=== PATIENT | female | born 1945 | race Caucasian/White ===

== ENCOUNTER 2017-03-09 23:35 | Inpatient (IN) | payer OTHER ==
--- NOTE | ~2017-03-09 | CO ---
Unit #: [id number] #: [id number] Patient: ALEXUS BOYKIN [id number] [facility] [address]. [place], [place] [address] [id number] MR#: [id number] NAME: ALEXUS BOYKIN ROOM: 309 Age: 72 Sex: F Admission Date: 03/10/2017 : 1945 Attending Physician: Jaime Carrillo M.D. Primary Care Physician: Chiquis Be M.D. CONSULTATION REPORT PRIMARY CARE PHYSICIAN Chiquis Be M.D. REASON FOR CONSULTATION Recurrent syncope. HISTORY OF PRESENT ILLNESS Ms. Boykin is a 72-year-old female with COPD and hypertension. Her hypertension has been difficult to control for many years. She has had angioedema from lisinopril in the past and she has been hospitalized. She was at [facility] in 12/2015 with the angioedema concerns and her CARLINE inhibitor was discontinued. At that time, it was also noted that she possibly had a transient ischemic attack. She was discharged with the metoprolol, Imdur, and Norvasc. Since then, she has had difficulty controlling her blood pressure with medicine and her blood pressure medicines have been adjusted. Her most current list includes Lopressor at 50 mg daily as well as hydrochlorothiazide at 25 mg daily, and hydralazine 75 mg t.i.d. In the last 4 months, she has had approximately 4 to 5 "spells," where she has lost consciousness. She states that this always occurs when she had been bending over and then comes to an upright position or when she has been sitting and comes to a standing position. She normally feels as though she is losing function of her body; however, she complains of no dizziness with this or lightheadedness. Yesterday, she had an episode while bending over to feed her cat. This was witnessed by her son and she was brought to [facility]. She states that she sought no medical treatment after her previous episodes of syncope. She states that these episodes only last for few seconds to a minute at a time and then she is feeling back to her baseline. This information is received from record review as well as from the patient interview. Her prior cardiac testing history, she had a left heart catheterization on 08/09/2004 which showed normal coronaries. She had a 2D echocardiogram on 03/22/2016 which showed EF of 60% with mild asymmetric septal hypertrophy. PAST MEDICAL HISTORY Includes; 1. Hypertension. 2. Hypothyroidism. 3. COPD. 4. Hormone replacement therapy. 5. Depression. 6. Degenerative joint disease. 7. Cholecystectomy. Unit #: [id number] #: [id number] Patient: ALEXUS BOYKIN 8. Hysterectomy secondary to cervical cancer. 9. Bilateral vocal cord polyp removal. 10. Exploratory lap x2. 11. Obstructive sleep apnea, diagnosed 2 years ago for which she is intolerant to her mask. 12. Pulmonary hypertension. 13. Possible TIA in 2016. 14. Hyperlipidemia. 15. Acute colitis in 2007. 16. Gastroesophageal reflux disease. 17. Environmental allergies. ALLERGIES Include sulfa and codeine and lisinopril which was thought to cause angioedema. HOME MEDICATIONS They include the following; Symbicort 2 puffs b.i.d., Lopressor 50 mg daily, potassium 20 mEq daily, estradiol 0.5 mg daily, Synthroid 88 mcg daily, Periactin 4 mg daily, Effexor 225 mg daily, omeprazole 20 mg daily, hydrochlorothiazide 25 mg daily, hydralazine 75 mg t.i.d., Flonase 2 puffs inhalation daily, Katherine 180 mg daily. SOCIAL HISTORY She quit smoking in 07/2015, but was 60 plus 1/2 to 1 pack a day smoker. She denies ever using alcohol or drugs. FAMILY HISTORY Mother with pancreatic cancer. Father's history is unknown. Brother with throat cancer. REVIEW OF SYSTEMS GENERAL: She states that she had pneumonia 1 month ago, but denies any recent fevers, chills, flu-like symptoms, or unintentional weight loss. SKIN: Denies any rashes or ulcerations, but does have various scabbed wounds on her arms and "thin skin." HEAD: Headaches, denies. EYES: Denies any sudden change in vision. EARS: Denies any sudden change in hearing. BLEEDING: Denies epistaxis, hemoptysis, hematuria, or melena. THROAT: Denies any problems with swallowing. LUNGS: Denies any wheeze, cough, or increased shortness of breath. CHEST: Denies any pain, palpitations, tachycardia, PND, or orthopnea. GI: Denies any nausea, vomiting, diarrhea, constipation, or change in stools, but states that she has frequent flatus. : Denies any burning or urgency. EXTREMITIES: Denies any swelling or increased pain with walking. SPINE: Denies any chronic back pain or scoliosis. NEURO: She has numbness and tingling of her right arm which she attributes to some carpal tunnel symptoms. No seizures or stroke-like symptoms, dizziness or unsteadiness; however, she did have the fall yesterday and did hit her head after feeding the cat and having her "spell." PHYSICAL EXAMINATION VITAL SIGNS: Blood pressure is 161/91, heart rate 57, respirations 14, temperature is 98, and 190 pounds. GENERAL: Well-developed, well-nourished, white female, in no acute Unit #: [id number] #: [id number] Patient: ALEXUS BOYKIN resting in the bed. SKIN: No obvious rashes or ulcerations noted. She does have various scabs on her bilateral upper extremities in various stages of healing. HEENT: Eyes, PERRLA. No xanthelasma. Oral, good dentition. Moist mucous membranes. No pallor. NECK: No carotid bruits auscultated bilaterally. SPINE: No scoliosis. CHEST: Clear to auscultation bilaterally. No wheezes, rales, or rhonchi. CARDIAC: S1 and S2. No murmur, rub, gallop, or lift. ABDOMEN: Soft and nontender. Positive bowel sounds. EXTREMITIES: Bilateral pedal pulses +2. No edema. NEUROLOGIC: Alert and oriented x3. Speech is clear. No obvious neuro deficits. DIAGNOSTIC STUDIES Her current labs/tests include: IMAGING STUDIES: CT of the cervical spine is normal. CT of the head, normal. Shoulder x-ray shows degenerative changes with no acute injury. Chest x-ray shows no active disease. LABORATORY RESULTS: Sodium 139, potassium 2.7, glucose 97, BUN 24, creatinine 1.3. Magnesium 1.8. Troponin less than 0.03 and less than 0.05 x2 at point of care. Urinalysis is essentially normal for infection with no culture indicated. BNP 140. PT 10.2, INR 1.0. Hemoglobin 12.8, hematocrit 39, platelets 153, and white blood cell count 7.3. IMPRESSION 1. Syncope, recurrent. 2. Hypertension. 3. Prolonged QT. 4. Hypothyroidism. 5. Hypokalemia, replace. 6. Untreated obstructive sleep apnea. 7. Chronic obstructive pulmonary disease. 8. Pulmonary hypertension. PLAN Dr. Foote has evaluated Ms. Boykin at the bedside and feels as though switching her hypertensive medications would be beneficial. At this point, we will add Norvasc 10 mg daily as well as well as chlorthalidone 25 mg daily, and change her hydralazine to 100 mg b.i.d. We will discontinue her hydrochlorothiazide and her beta-blaze due to her symptoms and a prolonged QTc. We will also discontinue the Effexor that also causes syncope, hypotension, and hypokalemia. She does have some bradycardia as well with rates in the 50s. We would like to see her chronotropic competence with stress testing. She also with the history of smoking and hypertension causes intermediate risk for coronary artery disease and ischemic evaluation is warranted. We will complete a Cardiolite stress test in the morning and also evaluate a TSH, hemoglobin A1c, and a lipid panel today and make further recommendations. We will also be evaluating the 2D echocardiogram that has already been ordered as well as the Holter monitor. She will need to be discharged home with an event monitor as well. Thank you for this consultation. We will be happy to follow this patient with you. Unit #: [id number] #: [id number] Patient: ALEXUS BOYKIN Dictated by... Dai BranPEmileREmileNEmile for MILI/tab TD: 03/11/2017 02:47 JOB #: [id number] CONSULTATION REPORT Page 1 of 1 X X CONSULTATION REPORT
--- NOTE | ~2017-03-09 | EKG ---
PATIENT: ALEXUS BOYKIN UNIT #: [id number] Ventricular Rate: 53 BPM Atrial Rate: 53 BPM P-R Interval: 168 ms QRS Duration: 98 ms Q-T Interval: 560 ms QTC Calculation(Bezet): 525 ms P [place]: 51 degrees Calculated R [place]: 13 degrees Calculated T [place]: 60 degrees Diagnosis Line: Sinus bradycardia Diagnosis Line: Cannot rule out , old Inferior infarct Diagnosis Line: Prolonged QT Diagnosis Line: Abnormal ECG Diagnosis Line: No previous ECGs available Diagnosis Line: Confirmed by BIJAL FORD MD ([id number]) on 03/11/2017 Diagnosis Line: 5:28:12 AM INTERPRETING MD: LILIANA LEE
--- NOTE | ~2017-03-09 | HP ---
Unit #: [id number] #: [id number] Patient: ALEXUS BOYKIN [id number] [address] [place], [place] [address] [id number] I MR#: [id number] NAME: ALEXUS BOYKIN. ROOM: 52796 Age: 72 Sex: F Admission Date: 03/10/2017 : 1945 Attending Physician: Priscilla Manuel M.D. Primary Care Physician: Chiquis Be M.D. HISTORY AND PHYSICAL CHIEF COMPLAINT Recurrent syncope, hypokalemia. HISTORY This pleasant 72-year-old female with hypertension, hypothyroidism, COPD, is admitted for recurrent syncope. The patient states that about three months ago or so she began to experience lightheadedness. These episodes would occur if patient stood up and was standing, or had straightened up after bending over. Patient has passed out four or five times. But also has had multiple episodes of near syncope improved after being seated. She denies other symptoms of the above, specifically no palpitations, chest pains, etc. She was seen by her primary care physician and an EKG reportedly may have been abnormal, she was referred to Dr. Celis who she has not yet followed up with. Head CT carotid ultrasound reportedly negative. Patient was noted to have hypokalemia, which was supplemented as an outpatient. Last night, after standing up from a bent over position, she became quite lightheaded and had a syncopal episode. Was unconscious for less than a minute. Hit her right side of her head and right shoulder. Son witnessed this, and patient did urinate on herself. However, these episodes are not associated with prolonged confusion. Patient states that she was confused, perhaps a minute or two upon awakening. She presented to this emergency department where she looks to be mildly dehydrated by labs, and her potassium is 2.5. Orthostatics were performed, and patient is orthostatic by blood pressure, not by pulse. PAST MEDICAL HISTORY 1. COPD. 2. GERD. 3. HRT. 4. Hypothyroidism. 5. Depression. 6. Essential hypertension. 7. DJD. 8. Cholecystectomy. 9. Hysterectomy for cervical cancer. 10. Bilateral vocal cord polyps, which were removed. 11. Exploratory lap x2. ALLERGIES Sulfa, codeine, and lisinopril. HOME MEDICATIONS Unit #: [id number] #: [id number] Patient: ALEXUS BOYKIN Symbicort 80/4.5 two puffs b.i.d.; metoprolol 50 mg b.i.d.; Xopenex as needed; gas relief as needed; potassium 20 mEq daily; estradiol 1 mg 1/2 tablet daily; Synthroid 0.088 mg daily; cyproheptadine 4 mg daily; Zanaflex ER 225 mg daily; omeprazole 20 mg as needed; Lasix 40 mg daily; HCTZ 25 mg daily; hydralazine 50 mg 1.5 tablets t.i.d.; Flonase nasal spray; Katherine; glucosamine; and vitamins. FAMILY HISTORY Pancreatic, colon and throat cancer. SOCIAL HISTORY The patient lives with her son. She does not drink alcohol. She smoked about a pack per day of tobacco, until 07/2015 when she stopped smoking. REVIEW OF SYSTEMS Notable for postural lightheadedness and syncope, COPD, GERD, hypothyroidism, depression, hypertension, DJD, above mentioned surgeries, history of pedal edema. All other systems were reviewed and are otherwise negative. PHYSICAL EXAMINATION GENERAL: Pleasant, moderately obese, 72-year-old female, currently in no acute distress. VITAL SIGNS: Temperature 97.9, pulse 63, respirations 24, blood pressure 144/97, O2 saturation 100% on room air. HEENT: Eyes - PERRLA, extraocular muscles are intact. Pharynx is benign. NECK: Supple without adenopathy or thyromegaly. No carotid bruits. CHEST: Rhonchi. CARDIAC: Normal S1 and S2 without definite murmur. ABDOMEN: Bowel sounds are present. No hepatosplenomegaly, tenderness or masses. Well healed scar was noted. EXTREMITIES: Without clubbing, cyanosis or edema. Pedal pulses are present. NEUROLOGIC: Patient is awake, alert and oriented. Cranial nerves are intact. She has equal strength throughout. Normal rapid alternating movements. Normal pfzjuh-ju-gfmv, negative pronator drift. DIAGNOSTIC STUDIES LABORATORY STUDIES: Hematocrit is 39, normal white count, platelet count and coags. SMA 12 - BUN 25, potassium 2.5, chloride 99, CO2 32. BNP is 140. Cardiac markers are negative. Urinalysis is negative. IMAGING STUDIES: Head CT - no acute disease. CT of the C-spine negative. X-ray of the right shoulder - DJD. Chest x-ray - no acute disease. CARDIOLOGY STUDIES: EKG shows a sinus bradycardia rate 53, prolonged QT interval. ASSESSMENT 1. Recurrent episodes of syncope and near syncope, which sound to be postural, i.e. orthostatic hypotension. Patient's blood pressure drops 13 points with standing, although her heart rate is unchanged. She is, however, on beta-blockers. She has borderline bradycardia on Unit #: [id number] #: [id number] Patient: ALEXUS BOYKIN current beta-blockers. 2. Hypokalemia. 3. COPD. 4. Essential hypertension. 5. Hypothyroidism. 6. Depression. 7. HRT therapy. 8. GERD. PLANS 1. Gently IV fluids. 2. Will discontinue Lasix as patient already takes HCTZ. 3. Decrease Lopressor to 25 mg b.i.d. 4. Replace potassium and check magnesium. 5. DVT prophylaxis. 6. Holter monitor and echo. Patient also planned to see Dr. Celis and I will ask him to see while she is hospitalized. Dictated by Priscilla Manuel M.D. AML/ts TD: 03/10/2017 06:19 JOB #: [id number] HISTORY AND PHYSICAL Page 1 of 1 X Priscilla Manuel MD HISTORY AND PHYSICAL
--- NOTE | ~2017-03-09 | CT52 ---
[facility] A Service of [facility] & [facility] RADIOLOGY TEXT RESULTS PATIENT: ALEXUS BOYKIN LOCATION: [facility] 309- : 47 UNIT #: [id number] AGE: [address]: Jaime Carrillo MD SEX: F ORDER DR: [id number] [place] [id number] [facility]. [place], [place] [address] [id number] I MR#: [id number] Acc #: [id number] NAME: ALEXUS BOYKIN. : 1945 SEX: F STUDY DATE/TIME: 03/10/2017 1:09 UNIT: CEDOF ROOM: 69710 STUDY DESCRIPTION: CT Cervical Spine Wo Cont Attending Physician: Jaime Carrillo M.D. Ordering Physician: Ba Santizo M.D. Primary Care Physician: Chiquis Be M.D. MEDICAL IMAGING REPORT This report is preliminary unless electronic signature is present EXAM CT scan of the cervical spine without contrast HISTORY Syncope, weakness. Had trauma to right side head with neck pain. TECHNIQUE Axial 2.0 mm images were obtained through the cervical spine and sagittal and coronal reconstructions were generated. This CT exam was performed with one or more of the following radiation dose reduction techniques: automatic exposure control, adjustment of mA and/or kV according to patient size, and iterative reconstruction. FINDINGS The vertebral bodies and disc spaces have normal alignment and there is no fracture or soft tissue swelling. IMPRESSION Normal CT scan of the cervical spine without contrast. Dictated by... José Lopez M.D. THIS IS AN ELECTRONICALLY VERIFIED REPORT José Lopez M.D. at 03/10/2017 1:23 PM TRINA/adriane TD: 03/10/2017 09:11 JOB #: [id number] MEDICAL IMAGING REPORT [facility] A Service of [facility] & [facility] RADIOLOGY TEXT RESULTS PATIENT: ALEXUS BOYKIN LOCATION: [facility] 309- : 47 UNIT #: [id number] AGE: [address]: Jaime Carrillo MD SEX: F ORDER DR: Page 1 of 1 COPY
--- NOTE | ~2017-03-09 | CR72 ---
[facility] A Service of [facility] & [facility] RADIOLOGY TEXT RESULTS PATIENT: ALEXUS BOYKIN LOCATION: [facility] 309-01 : 47 UNIT #: [id number] AGE: [address]: Jaime Carrillo MD SEX: F ORDER DR: [id number] [facility] [address] [place], [place] [address] [id number] I MR#: [id number] Acc #: [id number] NAME: ALEXUS BOYKIN. : 1945 SEX: F STUDY DATE/TIME: 03/10/2017 1:00 UNIT: [facility] ROOM: 34538 STUDY DESCRIPTION: CR Chest Single View Portable Attending Physician: Jaime Carrillo M.D. Ordering Physician: Ba Santizo M.D. Primary Care Physician: Chiquis Be M.D. MEDICAL IMAGING REPORT This report is preliminary unless electronic signature is present EXAM Portable chest. HISTORY Right side chest pain beginning tonight after fall. FINDINGS A portable view of the chest was obtained. Compared to 02/07/2017. Heart size and vascularity are normal. Lungs are clear. The bones are normal. IMPRESSION No active disease. Dictated by... José Lopez M.D. THIS IS AN ELECTRONICALLY VERIFIED REPORT José Lopez M.D. at 03/10/2017 1:23 PM TRINA/trace TD: 03/10/2017 09:03 JOB #: [id number] MEDICAL IMAGING REPORT Page 1 of 1 COPY
--- NOTE | ~2017-03-09 | CO ---
Unit #: [id number] #: [id number] Patient: ALEXUS BOYKIN [id number] [address] [place], [place] [address] [id number] I MR#: [id number] NAME: ALEXUS BOYKIN ROOM: 309 Age: 72 Sex: F Admission Date: 03/10/2017 : 1945 Attending Physician: Jaime Carrillo M.D. Primary Care Physician: Chiquis Be M.D. Consultation Date: 03/12/2017 CONSULTATION REPORT REASON FOR CONSULTATION Evaluation of sleep apnea prior to discharge. HISTORY OF PRESENT ILLNESS A 72-year-old female who was diagnosed in our office with sleep apnea three or four years ago and those details are unavailable. She was intolerant to CPAP primarily because of nasal congestion. She has significant nasal issues and has been evaluated by Dr. Gallego in the past and was told she has septal deviation as well as bilateral vocal cord polyps. She does snore. She has daytime sleepiness. She has a history of COPD. She feels that it is doing fairly well and she is controlled on Symbicort b.i.d. and albuterol p.r.n. at home. She was admitted to the hospital at this time with difficult to control hypertension and recurrent syncope which is felt to be orthostatic. PAST MEDICAL HISTORY Past medical history is remarkable for sleep apnea, COPD, gastroesophageal reflux, hypothyroidism, depression, hypertension, vocal cord polyps which have been removed. MEDICATIONS AT HOME Symbicort two puffs b.i.d., p.r.n. albuterol. According to the med rec sheet she is on Lopressor, potassium, Estrace, Synthroid, Periactin, Effexor, Prilosec, hydrochlorothiazide, Apresoline, Flonase, Katherine but many of these medications have been changed. ALLERGIES Sulfa, lisinopril with angioedema, codeine, hydrochlorothiazide. SOCIAL HISTORY Quit smoking in 2014 but was a fairly heavy smoker in the past. She denies alcohol use. FAMILY HISTORY No definite familial lung disease. REVIEW OF SYSTEMS She feels fairly well. No chest pain or palpitations. She denies any wheezing although she has minimal wheezing on exam. No change in sputum production. No fever, chills or weight loss. No difficulty swallowing. No abdominal pain, melena, hematuria or dysuria, focal weakness, paresthesias, leg pain or swelling. She is actually asking to go home. Unit #: [id number] #: [id number] Patient: ALEXUS BOYKIN Further review of systems negative. PHYSICAL EXAMINATION VITAL SIGNS: Examination reveals the patient is afebrile, pulse 98, respiratory rate is 20, blood pressure is 123/90. She is 5 foot 6, 197 pounds, BMI is 30. HEENT: Pupils equal, round and reactive to light. Sclerae anicteric. Head atraumatic. NECK: Supple. No supraclavicular or cervical adenopathy appreciated. Mallampati class IV oropharynx with dentures in place. CHEST: Some faint expiratory wheeze best heard posteriorly. No stridor or consolidation. CARDIAC: Examination reveals a regular rate and rhythm. She has a loud systolic murmur across her precordium. ABDOMEN: Abdomen is obsess, soft, nontender. No hepatomegaly or rebound. EXTREMITIES: Reveal no cyanosis, clubbing or edema. No calf tenderness. SKIN: Skin is warm and dry, without rash or diaphoresis. NEUROLOGIC: Neurologically grossly intact. No focal muscle or sensory deficits. DIAGNOSTIC STUDIES LABORATORY EXAMINATION: BUN is 18, creatinine is 1.0, TSH is elevated at 25.27, INR normal, cardiac enzymes were normal, white blood cell count 12, hemoglobin 12, platelet count 151. CARDIOVASCULAR: Echocardiogram: LV function was normal. Estimated RVSP is 37. IMPRESSION 1. Obstructive sleep apnea diagnosed in the past, intolerant to CPAP. 2. Chronic obstructive pulmonary disease with mild bronchospasm but fairly asymptomatic. 3. Pulmonary hypertension. 4. Systemic hypertension with elevated blood pressure undergoing readjustment of medications. 5. Hypothyroidism with elevated TSH. 6. Medical problems listed above. PLAN Once again I have discussed with the patient pathophysiology of sleep apnea including the adverse health effects if not treated and increased risk of motor vehicle accidents. We have discussed the diagnostic and therapeutic options and she is agreeable to retrying it. Consider outpatient PFTs as well. Continue her Symbicort b.i.d. and p.r.n. albuterol at home. Hopefully her sleep study can be performed in a split fashion as we know she has sleep apnea and needs CPAP. Thank you very much for allowing me to participate in the care of Ms. Boykin. Dictated by... Sang Brooks M.D. [facility]/cf Unit #: [id number] #: [id number] Patient: ALEXUS BOYKIN TD: 03/12/2017 22:42 JOB #: [id number] CC: John Mcintosh M.D. CONSULTATION REPORT Page 1 of 1 X Sang Brooks MD X CONSULTATION REPORT
--- NOTE | ~2017-03-09 | HM ---
Unit #: [id number] #: [id number] Patient: ALEXUS BOYKIN [id number] [address] [address] [id number] MR#: [id number] NAME: ALEXUS BOYKIN. : 1945 SEX: F STUDY DATE/TIME: 03/10/2017 UNIT: C3A PCU ROOM: 309 STUDY DESCRIPTION: Holter monitor Attending Physician: Jaime Carirllo M.D. Primary Care Physician: Chiquis Be M.D. CARDIOLOGY REPORT EXAM [id number] Holter DATE APPLIED 03/10/2017 DATE SCANNED 03/12/2017 ORDERED BY Darlyn READ BY Dr. Michelle Wilkinson INDICATION Syncope FINDINGS Underlying rhythm is normal sinus rhythm with an average heart rate of 73 beats per minute, minimum heart rate of 45 beats per minute and a maximum heart rate of 137 beats per minute. The minimum heart rate of 45 beats per minute is noted at 9:45 a.m. The maximum heart rate of 137 beats per minute is noted at 6:00 a.m. Patient had a 1.24 second pause noted at 1:08 p.m. Patient has 443 single multifocal premature ventricular complexes, four ventricular couplets and 126 ventricular bigeminy noted. Patient had 976 single premature atrial complexes and 13 atrial couplets noted. Patient had a three-beat run of paroxysmal supraventricular tachycardia at a heart rate of about 150 beats per minute. Patient did not record any symptoms. CONCLUSION 1. Underlying rhythm is normal sinus rhythm with an average heart rate of 73 beats per minute, minimum heart rate of 45 beats per minute and a maximum heart rate of 137 beats per minute. 2. No sustained atrial or ventricular arrhythmias noted. 3. No significant pauses noted. 4. Frequent single multifocal premature ventricular complexes noted. 5. Frequent single premature atrial complexes noted. 6. Patient had a three-beat run of paroxysmal supraventricular tachycardia at a heart rate of 150 beats per minute. 7. Patient did not record any symptoms. Unit #: [id number] #: [id number] Patient: ALEXUS BOYKIN Dictated by... Dot Cedeno TD: 03/17/2017 17:52 JOB #: [id number] CC: Chiquis Be M.D. CARDIOLOGY REPORT Page 1 of 1 X Michelle Wilkinson MD <ELECTRONICALLY SIGNED> 06/14/17 1429 HOLTER MONITOR REPORT
--- NOTE | ~2017-03-09 | CR230 ---
[facility] A Service of [facility] & [facility] RADIOLOGY TEXT RESULTS PATIENT: ALEXUS BOYKIN LOCATION: [facility] 309-01 : [birth year] UNIT #: [id number] AGE: [address]: Jaime Carrillo MD SEX: F ORDER DR: [id number] [facility] [address]. [place], [place] [address] [id number] I MR#: [id number] #: [id number] NAME: ALEXUS BOYKIN. : 1945 SEX: F STUDY DATE/TIME: 03/10/2017 1:02 UNIT: [facility] ROOM: 32919 STUDY DESCRIPTION: CR Shoulder Min 2 View Rt Attending Physician: Jaime Carrillo M.D. Ordering Physician: Ba Santizo M.D. Primary Care Physician: Chiquis Be M.D. MEDICAL IMAGING REPORT This report is preliminary unless electronic signature is present EXAM Right shoulder HISTORY Right shoulder pain after a fall tonight. COMPARISON 05/04/2015 FINDINGS 3 views of the right shoulder were obtained. There is some degenerative spurring from the humeral head. There is no fracture or dislocation. IMPRESSION Degenerative changes. No evidence of acute injury. Dictated by... José Lopez M.D. THIS IS AN ELECTRONICALLY VERIFIED REPORT José Lopez M.D. at 03/10/2017 1:23 PM TRINA/adriane TD: 03/10/2017 09:03 JOB #: [id number] MEDICAL IMAGING REPORT Page 1 of 1 COPY
--- NOTE | ~2017-03-09 | EKG ---
PATIENT: ALEXUS BOYKIN UNIT #: [id number] Ventricular Rate: 94 BPM Atrial Rate: 94 BPM P-R Interval: 168 ms QRS Duration: 88 ms Q-T Interval: 414 ms QTC Calculation(Bezet): 517 ms P [place]: 52 degrees Calculated R [place]: 2 degrees Calculated T [place]: 52 degrees Diagnosis Line: Normal sinus rhythm Diagnosis Line: Inferior infarct (cited on or before 16-MAR-2010) Diagnosis Line: Prolonged QT Diagnosis Line: Abnormal ECG Diagnosis Line: When compared with ECG of 10-MAR-2017 10:39, Diagnosis Line: Premature atrial complexes are no longer Present Diagnosis Line: Vent. rate has increased BY 36 BPM Diagnosis Line: Confirmed by BIJAL FORD MD ([id number]) on 03/12/2017 Diagnosis Line: 7:10:26 PM INTERPRETING MD: LILIANA LEE
--- NOTE | ~2017-03-09 | EKG ---
PATIENT: ALEXUS BOYKIN UNIT #: [id number] Ventricular Rate: 58 BPM Atrial Rate: 58 BPM P-R Interval: 158 ms QRS Duration: 90 ms Q-T Interval: 532 ms QTC Calculation(Bezet): 522 ms P [place]: 42 degrees Calculated R [place]: 0 degrees Calculated T [place]: 42 degrees Diagnosis Line: Sinus bradycardia with Premature atrial complexes Diagnosis Line: Inferior infarct (cited on or before 16-MAR-2010) Diagnosis Line: Prolonged QT Diagnosis Line: Abnormal ECG Diagnosis Line: When compared with ECG of 10-MAR-2017 00:39, Diagnosis Line: (unconfirmed) Diagnosis Line: Premature atrial complexes are now Present Diagnosis Line: Confirmed by BIJAL FORD MD ([id number]) on 03/11/2017 Diagnosis Line: 5:40:27 AM INTERPRETING MD: LILIANA LEE
--- NOTE | ~2017-03-09 | DS ---
Unit #: [id number] #: [id number] Patient: ALEXUS BOYKIN [id number] [address] [place], [place] [address] [id number] I MR#: [id number] NAME: ALEXUS BOYKIN. ROOM: 309 Age: 72 Sex: F Admission Date: 03/10/2017 : 1945 Discharge Date: 03/12/2017 Attending Physician: Jaime Carrillo M.D. Primary Care Physician: Chiquis Be M.D. DISCHARGE SUMMARY DISCHARGE DIAGNOSES 1. Recurrent syncope with bradycardia and obstructive sleep apnea, noncompliant with continuous positive airway pressure. 2. Essential hypertension with escalated blood pressure. Blood pressure is better today. 3. Hypothyroidism. Her home treatment of Synthroid has been increased. She will need to follow up with her primary care physician in 6 weeks to recheck thyroid-stimulating hormone and free T4. 4. Mild chronic obstructive pulmonary disease exacerbation. Treated with oral prednisone. The patient refused IV Solu-Medrol. At this time the patient is on room air. She is no longer wheezing. 5. Q-T prolongation, stable at this time. 6. Hypokalemia. Will be increasing dose of her chronic home usage. 7. Gastroesophageal reflux disease. PROCEDURES None. CONSULTANTS 1. Cardiology with [facility]. 2. Pulmonary with Dr. Brooks. DIAGNOSTIC STUDIES IMAGING: Chest x-ray on March 10. Impression - No active disease. CT of the head without contrast on March 10. Impression - Normal noncontrast head CT. X-ray of shoulder on March 10. Impression - Degenerative changes. No evidence of acute injury. CT of cervical spine on 03/10. Impression - Normal CT scan of the cervical spine without contrast. LABS: On the day of discharge the patient's labs are a BMP with glucose of 121, BUN 18, creatinine 1, sodium 138, potassium 3.5, chloride 109, CO2 25, calcium 8.7, magnesium 2.1. CBC with WBC of 12.2, RBC 3.98, hemoglobin 12, hematocrit 37.1, MCV 93.3, MCH 30.2, MCHC 32.3, RDW 15.5, platelets 151, MPV 8.9. HOSPITAL COURSE The patient is a pleasant 72-year-old female with past medical history of essential hypertension, hypothyroidism, COPD who presented to the emergency department due to symptoms of recurrent syncope at home. The Unit #: [id number] #: [id number] Patient: ALEXUS BOYKIN patient states about 3 months ago she began to experience some symptoms of lightheadedness. These episodes would occur if the patient stood up and remained standing or straightened up after bending over. The patient passed out 4-5 times. The patient had multiple episodes of near syncope and improved with sitting. She denied any other symptoms of the details stated above; specifically, no palpitations, no chest pains, no diaphoresis. She was seen by her primary care physician, and an EKG was reported to be abnormal. She was referred to Dr. Celis but has not seen him yet. She reportedly had a carotid CT ultrasound, which was negative. She was noted to have hypokalemia on an outpatient basis and was started on potassium supplements. On the evening prior to admission, she had a syncopal event where she fell and hit her head, was unconscious for a couple minutes. As well, she injured the right side of her shoulder. Her son witnessed the event. The patient did not have prolonged state of confusion. She was seen in the emergency department where her potassium was found to be 2.5 and orthostatics, blood pressure, were positive. She was admitted for recurrent syncope and was seen in consultation with cardiology. It was found the patient did have Q-T prolongation, and her heart rates were in the 50s with recurrent syncopal event. Her home medicine of Hydrochlorothiazide was held. Lopressor was stopped and, instead, was placed on amlodipine 10 daily. Hydralazine was increased to 100 mg orally twice daily. At this time the patient's symptoms of syncope have resolved. There was also concern, as the patient does have sleep apnea but had been noncompliant with CPAP for the past couple years. Therefore, Dr. Brooks was consulted by cardiology to evaluate this patient, and the patient can follow up with Dr. Brooks's nurse practitioner to arrange for outpatient sleep study and/or PFT and follow up with Dr. Brooks for this. At this time the patient is stable to be discharged home. DISCHARGE ACTIVITY Resume activities as prior to hospitalization with ambulating every day. DISCHARGE DIET Resume heart healthy diet. DISCHARGE MEDICATIONS 1. Symbicort 80 mcg 2 puffs inhaled b.i.d. 2. Prednisone 40 mg orally for the next 3 days, 30 mg orally for the next 3 days, 20 mg orally for the next 3 days, 10 mg orally daily for the next 3 days. 3. Flonase 2 puffs inhaled daily. 4. Venlafaxine 225 mg orally daily. 5. Periactin 4 mg orally daily. 6. Katherine 180 mg orally daily. 7. Claritin 10 mg orally daily. 8. Norvasc 10 mg orally daily. 9. Chlorthalidone 25 mg orally daily. 10. Estrace 0.5 mg orally daily. 11. Lipitor 40 mg orally at bedtime. 12. Hydralazine increased to 100 mg orally daily. 13. Aspirin 81 mg orally daily. 14. Omeprazole 20 mg orally daily. 15. Potassium increased to 20 mEq orally b.i.d. 16. Xopenex 1.25 mg inhaled t.i.d. Unit #: [id number] #: [id number] Patient: ALEXUS BOYKIN 17. Synthroid increased to 0.1 mg orally daily. 18. Patient is to stop taking Lopressor and stop taking Hydrochlorothiazide. DISCHARGE FOLLOWUP 1. Please follow up with primary care physician within 1-2 weeks with a repeat BMP. 2. Follow up with Dr. Brooks's nurse practitioner in 1-2 weeks to arrange for outpatient sleep study and/or PFTs. Follow up with Dr. Brooks after that. 3. Follow up with Dr. Mcintosh in his office in 4 weeks. 4. Patient is to have her TSH and free T4 assessed in 6 weeks. Dictated by... Mimi Thorne PA-C for Dot Lechuga/nighat TD: 03/13/2017 09:19 JOB #: [id number] DISCHARGE SUMMARY Page 1 of 1 X X DISCHARGE SUMMARY
--- NOTE | ~2017-03-09 | CT71 ---
[facility] A Service of [facility] RADIOLOGY TEXT RESULTS PATIENT: ALEXUS BOYKIN LOCATION: [facility] 309-01 : [birth year] UNIT #: [id number] AGE: [address]: Jaime Carrillo MD SEX: F ORDER DR: [id number] [facility] [address]. [place], [place] [address] [id number] I MR#: [id number] Acc #: [id number] NAME: ALEXUS BOYKIN. : 1945 SEX: F STUDY DATE/TIME: 03/10/2017 1:01 UNIT: [facility] ROOM: [id number] STUDY DESCRIPTION: CT Head Wo Contrast Attending Physician: Jaime Carrillo M.D. Ordering Physician: Ba Santizo M.D. Primary Care Physician: Chiquis Be M.D. MEDICAL IMAGING REPORT This report is preliminary unless electronic signature is present EXAM CT scan head without contrast. HISTORY Syncope, weakness, hit right side of head tonight, has headache. COMPARISON 01/20/2016. This CT exam was performed with one or more of the following radiation dose reduction techniques: automatic exposure control, adjustment of mA and/or kV according to patient size, and iterative reconstruction. FINDINGS Axial noncontrast images were obtained from the skull base to the vertex. Ventricular size and configuration are normal. There is no evidence of acute infarct or hemorrhage. There are no extra-axial fluid collections. No mass lesion or mass effect is seen. There are no skull fractures. IMPRESSION Normal noncontrast head CT. Dictated by... José Lopez M.D. THIS IS AN ELECTRONICALLY VERIFIED REPORT José Lopez M.D. at 03/10/2017 1:23 PM TRINA/trace [facility] A Service of [facility] & [facility] RADIOLOGY TEXT RESULTS PATIENT: ALEXUS BOYKIN LOCATION: [facility] 309-01 : [birth year] UNIT #: [id number] AGE: [address]: Jaime Carrillo MD SEX: F ORDER DR: TD: 03/10/2017 09:04 JOB #: [id number] MEDICAL IMAGING REPORT Page 1 of 1 COPY
[~2017-03-09 23:35] MED LIST: CRESTOR10 MG PO; EFFEXOR PO; FLOVENT DI50 MCG/DIS IH; KEFLEX500 MG PO; LEVOTHYROXINE100 MCG PO; NORVASC PO; PERIACTIN4 MG PO; PREMARIN PO; PRILOSEC PO; TUSSIONEX PENN473 ML PO; VITAMIN B650 MG PO; ZESTORETIC1 TAB DOB
[2017-03-10 00:03] LABS: BASOPHIL# 0.1 X10e3 (0-0.3); BASOPHIL% 1.3 % (0-2.5); DIFF IND NO; EOSINOPHIL# 0.4 X10e3 (0-0.7); EOSINOPHIL% 5.1 % (0.0-7.0); HEMOGLOBIN 12.8 gm/dL (12.0-16.0); LYMPHOCYTE# 2.2 X10e3 (1.0-3.5); LYMPHOCYTE% 29.4 % (17.0-45.0); MEAN CELL VOLUME 92.7 FL (83-96); MEAN CORPUSCULAR HEMOGLOBIN 30.5 PG (28-34); MEAN CORPUSCULAR HGB CONC 32.9 g/dL (30-36); MONOCYTE# 0.8 X10e3 (0-1.0); MONOCYTE% 10.5 % (3.0-12.0); NEUTROPHIL# 3.9 X10e3 (1.5-7.1); NEUTROPHIL% 53.7 % (40-75); PLATELET COUNT 153 X10e3 (140-420); RED BLOOD COUNT 4.21 X10e (3.90-5.30); WHITE BLOOD COUNT 7.3 X10e3 (4.0-10.5)
[2017-03-10 00:17] LABS: PARTIAL THROMBOPLASTIN TIME 23.7 SECONDS (23.5-31.3); PROTHROMBIN TIME (PATIENT) 10.2 SECONDS (9.6-11.5)
[2017-03-10 00:24] LABS: POC - CKMB 3.9 ng/mL (0.0-7.9); POC - TROPONIN <0.05 ng/mL (<=0.05)
[2017-03-10 00:27] LABS: ALBUMIN SERUM 3.6 g/dL (3.5-5.0); BILIRUBIN, DIRECT 0.1 mg/dL (0.0-0.2); BILIRUBIN,INDIRECT 0.5 mg/dL (0.0-0.9); BILIRUBIN,TOTAL 0.6 mg/dL (0.2-2.0); BUN/CREATININE RATIO 19.23; CALCIUM SERUM 9.3 mg/dL (8.4-10.2); CREATININE SERUM 1.3 mg/dL (0.6-1.4); GLOM FILT RATE Estimated 41.5 mL/min (>60)
[2017-03-10 00:37] LABS: POTASSIUM 2.5 mmol/L (3.5-5.1)
[2017-03-10 00:52] LABS: URINE SOURCE CLEAN CATCH
[2017-03-10 00:55] LABS: URINE APPEARANCE CLOUDY; URINE BILIRUBIN NEG (NEG); URINE BLOOD NEG (NEG); URINE COLOR YELLOW; URINE GLUCOSE NEG (NEG); URINE KETONE NEG (NEG); URINE LEUKOCYTE ESTERASE NEG (NEG); URINE NITRATE NEG (NEG); URINE PH 5.5 (5-8); URINE PROTEIN NEG (NEG); URINE SPECIFIC GRAVITY 1.016 (1.003-1.035); URINE UROBILINOGEN 0.2 MG/DL (NEG)
[2017-03-10 00:59] LABS: CULTURE INDICATED? NO
[2017-03-10 03:33] LABS: POC - CKMB 5.2 ng/mL (0.0-7.9); POC - TROPONIN <0.05 ng/mL (<=0.05)
[2017-03-10] MEDS ORDERED: SYMBICORT80 INH (03:55)
[2017-03-10] MEDS ORDERED: LOPRESSOR PO (03:56)
[2017-03-10] MEDS ORDERED: KCL PO (03:57)
[2017-03-10] MEDS ORDERED: ESTRACE0.5 MG PO (03:58)
[2017-03-10] MEDS ORDERED: SYNTHROID88 MCG PO (03:58)
[2017-03-10] MEDS ORDERED: PERIACTIN4 M1 PO (03:59)
[2017-03-10] MEDS ORDERED: VENLAFAXINE HC225 MG PO (03:59)
[2017-03-10] MEDS ORDERED: OMEPRAZOLE20 M1 PO (04:00)
[2017-03-10] MEDS ORDERED: HYDROCHLOROTHIA25 MG PO (04:00)
[2017-03-10] MEDS ORDERED: APRESOLINE PO (04:01)
[2017-03-10] MEDS ORDERED: ALLEGRA PO (04:02)
[2017-03-10] MEDS ORDERED: FLONASE 0.05% N16 G1 INH (04:02)
[2017-03-10 07:16] LABS: BASOPHIL# 0.1 X10e3 (0-0.3); BASOPHIL% 1.2 % (0-2.5); DIFF IND NO; EOSINOPHIL# 0.3 X10e3 (0-0.7); EOSINOPHIL% 3.8 % (0.0-7.0); HEMATOCRIT 37.4 % (35.0-45.0); HEMOGLOBIN 12.2 gm/dL (12.0-16.0); LYMPHOCYTE# 2.4 X10e3 (1.0-3.5); LYMPHOCYTE% 32.7 % (17.0-45.0); MEAN CELL VOLUME 92.8 FL (83-96); MEAN CORPUSCULAR HEMOGLOBIN 30.3 PG (28-34); MEAN CORPUSCULAR HGB CONC 32.7 g/dL (30-36); MEAN PLATELET VOLUME 9.4 FL (6.5-11.5); MONOCYTE# 0.7 X10e3 (0-1.0); MONOCYTE% 9.1 % (3.0-12.0); NEUTROPHIL# 3.9 X10e3 (1.5-7.1); NEUTROPHIL% 53.2 % (40-75); PLATELET COUNT 149 X10e3 (140-420); RED BLOOD COUNT 4.03 X10e (3.90-5.30); WHITE BLOOD COUNT 7.4 X10e3 (4.0-10.5)
[2017-03-10 07:57] LABS: BUN/CREATININE RATIO 18.46; CALCIUM SERUM 8.7 mg/dL (8.4-10.2); CREATININE SERUM 1.3 mg/dL (0.6-1.4); GLOM FILT RATE Estimated 41.5 mL/min (>60); MAGNESIUM 1.8 mg/dL (1.6-3.0)
[2017-03-10 08:02] LABS: POTASSIUM 2.7 mmol/L (3.5-5.1)
[2017-03-10 08:12] LABS: %MB 4.6 % (0.0-4.0); MB 7.4 ng/ml
[2017-03-10 12:38] LABS: CHOLESTEROL 170 mg/dL (0-200); HDL CHOLESTEROL 55 mg/dL (35-95); LDL CHOLESTEROL 91 mg/dL (-130); LDL/HDL RATIO 2 RATIO (0-4); TRIGLYCERIDES 120 mg/dL (10-160)
[2017-03-11 06:44] LABS: HEMOGLOBIN 12.1 gm/dL (12.0-16.0); MEAN CELL VOLUME 93.1 FL (83-96); MEAN CORPUSCULAR HEMOGLOBIN 30.5 PG (28-34); MEAN CORPUSCULAR HGB CONC 32.8 g/dL (30-36); MEAN PLATELET VOLUME 8.7 FL (6.5-11.5); RED BLOOD COUNT 3.98 X10e (3.90-5.30); WHITE BLOOD COUNT 6.5 X10e3 (4.0-10.5)
[2017-03-11 07:33] LABS: CALCIUM SERUM 8.8 mg/dL (8.4-10.2); GLOM FILT RATE Estimated 57.1 mL/min (>60); MAGNESIUM 2.1 mg/dL (1.6-3.0)
[2017-03-11 07:40] LABS: FREE T3 2.6 pg/mL (2.5-3.9)
[2017-03-11 07:41] LABS: FREE THYROXIN (T4) 0.45 ng/dL (0.58-1.64)
[2017-03-12 06:17] LABS: HEMATOCRIT 37.1 % (35.0-45.0); MEAN CELL VOLUME 93.3 FL (83-96); MEAN CORPUSCULAR HEMOGLOBIN 30.2 PG (28-34); MEAN CORPUSCULAR HGB CONC 32.3 g/dL (30-36); MEAN PLATELET VOLUME 8.9 FL (6.5-11.5); RED BLOOD COUNT 3.98 X10e (3.90-5.30); RED CELL DISTRIBUTION WIDTH 15.5 % (11.0-15.5)
[2017-03-12 06:31] LABS: WHITE BLOOD COUNT 12.2 X10e3 (4.0-10.5)
[2017-03-12 07:02] LABS: CALCIUM SERUM 8.7 mg/dL (8.4-10.2); GLOM FILT RATE Estimated 57.1 mL/min (>60); POTASSIUM 3.5 mmol/L (3.5-5.1)
[2017-03-12] MEDS ORDERED: NORVASC10 MG PO (14:58)
[2017-03-12] MEDS ORDERED: PREDNISONE PO (14:58)
[2017-03-12] MEDS ORDERED: CHLORTHALIDONE25 M1 PO (14:59)
[2017-03-12] MEDS ORDERED: LIPITOR40 MG PO (14:59)
[2017-03-12] MEDS ORDERED: ASPIRIN81 M2 PO (15:00)
[2017-03-12] MEDS ORDERED: HYDRALAZINE HC100 MG PO (15:00)
[2017-03-12] MEDS ORDERED: SYNTHROID0.2 MG PO (15:01)
[2017-03-12] MEDS ORDERED: XOPENEX1.25 MG/3 INH (15:02)
== END 2017-03-12 16:15 | disposition home or self-care (01) | DRG 309 ==
LOC: CED 23:35 → CEDOF 03-10 02:40 → C3A PCU 03-10 09:57
PROVIDERS: Emergency Medicine; Family Medicine; Internal Medicine
PROC: B246YZZ Ultrasonography of Right and Left Heart using Other Contrast (ICD-10-PCS; principal; 2017-03-10)
DX: R00.1 Bradycardia, unspecified (principal); J44.1 Chronic obstructive pulmonary disease with (acute) exacerbation; I27.2 Other secondary pulmonary hypertension; Z91.19 Patient's noncompliance with other medical treatment and regimen; I10 Essential (primary) hypertension; E03.9 Hypothyroidism, unspecified; Z79.890 Hormone replacement therapy; F32.9 Major depressive disorder, single episode, unspecified; Z90.49 Acquired absence of other specified parts of digestive tract; Z90.710 Acquired absence of both cervix and uterus; G47.33 Obstructive sleep apnea (adult) (pediatric); E78.5 Hyperlipidemia, unspecified; K21.9 Gastro-esophageal reflux disease without esophagitis; Z88.5 Allergy status to narcotic agent; Z88.2 Allergy status to sulfonamides; Z87.891 Personal history of nicotine dependence; I45.81 Long QT syndrome; E87.6 Hypokalemia; I95.1 Orthostatic hypotension
CPT/HCPCS: 36415; 70450; 71010; 72125; 73030; 80048; 80061; 80076; 81003; 82550; 82553; 82947; 83036; 83735; 83880; 84439; 84443; 84481; 84484; 85025; 85027; 85610; 85730; 93005; 93225; 93226; 93306; 94640; 94664; 94760; 96360; 97161; 99285; G8978-GP; G8979-GP; G8980-GP; J1650; J3475